=== PATIENT | male | born 1950 | race Caucasian/White ===

== ENCOUNTER → 2018-09-30 | Day surgery (SDC) | payer MEDICARE, OTHER ==
[2018-09-22 15:43] LABS: BASOPHILS % (AUTO) 0.2 % (0-1); EOSINOPHILS # (AUTO) 0.3 X10'3 (0-0.9); EOSINOPHILS % (AUTO) 2.4 % (0-6); LYMPHOCYTES % (AUTO) 27.8 % (21-51); MEAN CORPUSCULAR HEMOGLOBIN 29.6 PG (27.0-31.0); MEAN CORPUSCULAR HGB CONC 33.6 % (33.0-36.5); MEAN PLATELET VOLUME 9.7 FL (7.4-10.4); MONOCYTES # (AUTO) 0.9 X10'3 (0-0.9); MONOCYTES % (AUTO) 7.9 % (2-12); NEUTROPHILS # (AUTO) 6.7 X10'3 (1.8-7.7); NEUTROPHILS % (AUTO) 61.7 % (42-75); PRE OP HEMATOCRIT 46.3 % (42.0-52.0); PRE OP HEMOGLOBIN 15.6 g/dL (14.0-17.9); PRE OP PLATELET COUNT 173 X10'3 (140-440); RED BLOOD COUNT 5.27 X10'6 (4.70-6.10); RED CELL DISTRIBUTION WIDTH 13.9 % (11.5-14.5)
[2018-09-22 15:54] LABS: ALBUMIN 3.8 G/DL (3.4-5.0); ALBUMIN/GLOBULIN RATIO 0.9 (1.1-1.5); ALKALINE PHOSPHATASE 67 IU/L (46-116); BLOOD UREA NITROGEN 21 MG/DL (7-18); BUN/CREATININE RATIO 15.8 (5.4-32.0); CALCIUM 9.2 MG/DL (8.5-10.1); CHLORIDE 105 MMOL/L (99-107); CREATININE 1.33 MG/DL (0.60-1.10); PRE OP ALT 42 U/L (30-65); PRE OP ANION GAP 10 (8-16); PRE OP AST 23 U/L (10-37); PRE OP BILIRUB, TOTAL 0.4 MG/DL (0.0-1.0); PRE OP GLUCOSE 96 MG/DL (70-104); PRE OP SODIUM 144 MMOL/L (135-145); TOTAL CARBON DIOXIDE 29.3 MMOL/L (24-32); TOTAL PROTEIN 7.9 G/DL (6.4-8.2); eGFR 53 ML/MIN
[2018-09-22 15:59] LABS: PRE OP POTASSIUM 3.8 MMOL/L (3.4-5.1)
[2018-09-30] VITALS (16 sets, daily range): BP systolic 134–152; BP diastolic 73–85
[~2018-09-30] VITALS: Ht 177.8 cm; Wt 104.3 kg
[~2018-09-30] MED LIST: ALBU8.5H8 INH; ATOR40TA PO; BUPIVAcaine/PF 2.5mg/ml (0.25%) 10ml vial IJ ONE; BUPIVAcaine/PF 2.5mg/ml (0.25%) 10ml vial ONE; CLOP75TA15 PO; DOCUMENT DATE & TIME OF BETA-BLOCKER PO ONE; ESOM40CA30 PO; EVOL140P; IBUP-1984 PO; LIDOcaine 1% (10mg/ml) 2ml vial ONE; LIDOcaine 2% (20mg/ml) 5ml vial ONE; LISI40TA4 PO; METO25TA6 PO; ROPIVAcaine 0.5% (5mg/ml) 30ml vial ONE; TESTOSTERONE CRM TOP; VANCOMYCIN INJ 1000 MG in NORMAL SALINE 250ml IV.SOLN IV ONE; albuterol 2.5 MG/3 ML nebule NEB ONE; ceFAZolin inj. 2,000 MG in dextrose 5%-water 50ml 50 ML IV ONE; cloNIDine hcl/PF 100mcg/ml inj ONE; dexamethasone sod phosphate 4mg/ml inj. ONE; ePHEDrine 50MG/ML INJ. ONE; famotidine 20mg tablet PO ONE; fentaNYL/PF 50MCG/1 ML 2ML syringe ONE; glycopyrrolate 0.2mg/ml inj ONE; ipratropium/albuterol 3ml nebule NEB ONE; meperidine/PF 25mg/ml syringe IV PRN; methylPREDNISolone sod succ 125mg/2ml vial ONE; midazolam 2 mg/2 ml injection ONE; morphine 4 MG/ML inj SYRINge IV PRN; neostigmine methylsulfate 1 MG/ML 10ml vial ONE; ondansetron/PF 4mg/2ml inj IV PRN; ondansetron/PF 4mg/2ml inj ONE; phenylephrine 10mg/ml inj. ONE; proCHLORperazine 10 MG/2 ml inj IV PRN; propofol inj 20 ML IV ONE; ringers solution, lacted 1,000 ML IV SCH; rocuronium 10mg/ml inj IV ONE; scopolamine 1.5mg patch.TD72 TD ONE; sevoflurane 250ml liquid IH ONE; triamcinolone acetonide 40mg/ml inj ONE
[2018-09-30 07:36] LABS: PARTIAL THROMBOPLASTIN TIME 27 SECONDS (22-32); PROTHROMBIN TIME 10.3 SECONDS (9.0-12.0)
--- NOTE | 2018-09-30 10:23 | NUR ---
Received from OR via [facility] , accompanied by Anesthesiologist NORA and report given by Anesthesiolgist. PATIENT WITH 20G PIV IN LEFT HAND RUNNING LR AT 100. DENIES PAIN UPON ARRIVAL. RIGHT UE IN SLING AND WITH ANTERIOR SHOULDER DRESSING IN PLACE THAT IS CDI. ALSO LEFT WRIST DRESSING IS CDI. + CAP REFILL. NERVE BLOCK IN PLACE SO PATIENT PRESENTS WITH DECREASED SENSATION TO RIGHT UE. VSS. SG PEDROZA APPLIED FOR COMFORT. Addendum: 09/30/18 at 1036 by Lennox Nix RN, RN Amended: Links added.
--- NOTE | 2018-09-30 12:43 | NUR ---
ALL DC CRITERIA HAS BEEN MET. IV TAKEN OUT WITHOUT COMPLICATIONS. ALL INSTRUCTIONS COVERED AND ALL QUESTIONS ANSWERED. OUT VIA WHEELCHAIR TO PERSONAL VEHICLE WHERE THEY WERE SECURED IN AND DRIVEN HOME BY FAMILY. Addendum: 09/30/18 at 1255 by Lennox Nix RN, RN Amended: Links added.
== END | disposition home or self-care (01) ==
LOC: PAS 05:31
PROVIDERS: ATTEND Orthopaedic Surgery
DX: S43.431A Superior glenoid labrum lesion of right shoulder, initial encounter (principal); G56.01 Carpal tunnel syndrome, right upper limb; G56.21 Lesion of ulnar nerve, right upper limb; M19.011 Primary osteoarthritis, right shoulder; M75.41 Impingement syndrome of right shoulder; M25.311 Other instability, right shoulder; M94.211 Chondromalacia, right shoulder; I10 Essential (primary) hypertension; K21.9 Gastro-esophageal reflux disease without esophagitis; E78.5 Hyperlipidemia, unspecified; E66.9 Obesity, unspecified; J45.998 Other asthma; G47.33 Obstructive sleep apnea (adult) (pediatric); I25.2 Old myocardial infarction; Z95.1 Presence of aortocoronary bypass graft; Z95.5 Presence of coronary angioplasty implant and graft; Z87.891 Personal history of nicotine dependence; Z86.73 Personal history of transient ischemic attack (TIA), and cerebral infarction without residual deficits; Z79.891 Long term (current) use of opiate analgesic; Z79.1 Long term (current) use of non-steroidal anti-inflammatories (NSAID); Z88.5 Allergy status to narcotic agent; Z79.01 Long term (current) use of anticoagulants; Z88.3 Allergy status to other anti-infective agents; Z91.041 Radiographic dye allergy status; Z88.6 Allergy status to analgesic agent; Z68.33 Body mass index [BMI] 33.0-33.9, adult; Z86.74 Personal history of sudden cardiac arrest; Z86.79 Personal history of other diseases of the circulatory system; Z72.89 Other problems related to lifestyle; Z88.8 Allergy status to other drugs, medicaments and biological substances; Z79.899 Other long term (current) drug therapy; Z98.890 Other specified postprocedural states; X58.XXXA Exposure to other specified factors, initial encounter; Y93.89 Activity, other specified; Y92.89 Other specified places as the place of occurrence of the external cause; Y99.8 Other external cause status
CPT/HCPCS: 29806; 29807; 29824; 29826; 36415; 64719; 64721; 80053; 85025; 85610; 85730; 94640; A6222; A6449; C1713; J0690; J0735; J1100; J2001; J2250; J2370; J2405; J2704; J2710; J2930; J3010; J3301; J3370; J3490; J7060; J7120; L3650; A6250; A7000; J2795; J7030

== ENCOUNTER 2018-10-24 08:11 | Emergency (ER) | payer MEDICARE, OTHER ==
[~2018-10-24] VITALS: Ht 177.8 cm; Wt 102.2 kg
[~2018-10-24 08:11] MED LIST changes: -BUPIVAcaine/PF 2.5mg/ml (0.25%) 10ml vial IJ ONE; -BUPIVAcaine/PF 2.5mg/ml (0.25%) 10ml vial ONE; -DOCUMENT DATE & TIME OF BETA-BLOCKER PO ONE; -LIDOcaine 1% (10mg/ml) 2ml vial ONE; -LIDOcaine 2% (20mg/ml) 5ml vial ONE; -ROPIVAcaine 0.5% (5mg/ml) 30ml vial ONE; -VANCOMYCIN INJ 1000 MG in NORMAL SALINE 250ml IV.SOLN IV ONE; -albuterol 2.5 MG/3 ML nebule NEB ONE; -ceFAZolin inj. 2,000 MG in dextrose 5%-water 50ml 50 ML IV ONE; -cloNIDine hcl/PF 100mcg/ml inj ONE; -dexamethasone sod phosphate 4mg/ml inj. ONE; -ePHEDrine 50MG/ML INJ. ONE; -famotidine 20mg tablet PO ONE; -fentaNYL/PF 50MCG/1 ML 2ML syringe ONE; -glycopyrrolate 0.2mg/ml inj ONE; -ipratropium/albuterol 3ml nebule NEB ONE; -meperidine/PF 25mg/ml syringe IV PRN; -methylPREDNISolone sod succ 125mg/2ml vial ONE; -midazolam 2 mg/2 ml injection ONE; -morphine 4 MG/ML inj SYRINge IV PRN; -neostigmine methylsulfate 1 MG/ML 10ml vial ONE; -ondansetron/PF 4mg/2ml inj IV PRN; -ondansetron/PF 4mg/2ml inj ONE; -phenylephrine 10mg/ml inj. ONE; -proCHLORperazine 10 MG/2 ml inj IV PRN; -propofol inj 20 ML IV ONE; -ringers solution, lacted 1,000 ML IV SCH; -rocuronium 10mg/ml inj IV ONE; -scopolamine 1.5mg patch.TD72 TD ONE; -sevoflurane 250ml liquid IH ONE; -triamcinolone acetonide 40mg/ml inj ONE
[2018-10-24] MEDS ORDERED: fentaNYL/PF 50MCG/1 ML 2ML syringe IV ONE (08:50)
[2018-10-24 09:15] LABS: BASOPHILS # (AUTO) 0.1 X10'3 (0-0.2); BASOPHILS % (AUTO) 0.4 % (0-1); EOSINOPHILS # (AUTO) 0.3 X10'3 (0-0.9); EOSINOPHILS % (AUTO) 1.7 % (0-6); HEMATOCRIT 48.3 % (42.0-52.0); HEMOGLOBIN 15.9 g/dl (14.0-17.9); LYMPHOCYTES # (AUTO) 2.1 X10'3 (1.1-4.8); MEAN CORPUSCULAR HGB CONC 32.9 % (33.0-36.5); MEAN CORPUSCULAR VOLUME 88.1 FL (78-98); MEAN PLATELET VOLUME 9.5 FL (7.4-10.4); MONOCYTES % (AUTO) 6.6 % (2-12); NEUTROPHILS # (AUTO) 11.6 X10'3 (1.8-7.7); NEUTROPHILS % (AUTO) 77.3 % (42-75); PLATELET COUNT 179 X10'3 (140-440); RED BLOOD COUNT 5.48 X10'6 (4.70-6.10); WHITE BLOOD COUNT 14.9 X10'3 (4.5-11.0)
[2018-10-24 09:28] LABS: PARTIAL THROMBOPLASTIN TIME 28 SECONDS (22-32); PROTHROMBIN TIME 9.8 SECONDS (9.0-12.0)
[2018-10-24 09:31] LABS: ALANINE AMINOTRANSFERASE 37 U/L (12-78); ALBUMIN 3.6 G/DL (3.4-5.0); ALBUMIN/GLOBULIN RATIO 0.8 (1.1-1.5); ALKALINE PHOSPHATASE 74 IU/L (46-116); ANION GAP 12 (8-16); ASPARTATE AMINO TRANSFERASE 20 U/L (10-37); BILIRUBIN,TOTAL 0.5 MG/DL (0.1-1.0); BLOOD UREA NITROGEN 25 MG/DL (7-18); BUN/CREATININE RATIO 18.5 (5.4-32.0); CALCIUM 9.3 MG/DL (8.5-10.1); CHLORIDE 106 MMOL/L (99-107); CREATININE 1.35 MG/DL (0.60-1.10); GLUCOSE 132 MG/DL (70-104); SODIUM 145 MMOL/L (135-145); TOTAL CARBON DIOXIDE 26.6 MMOL/L (24-32); TOTAL PROTEIN 8.3 G/DL (6.4-8.2); eGFR 53 ML/MIN
[2018-10-24] MEDS ORDERED: LEVO750T21 PO (11:06)
[2018-10-24] MEDS ORDERED: CYCL-1 PO (11:06)
[2018-10-24] MEDS ORDERED: levoFLOXACIN 250mg tablet PO ONE (11:10)
[2018-10-24 11:53] VITALS: BP 112/79
== END 2018-10-24 11:54 | disposition home or self-care (01) ==
LOC: ER 08:11
DX: J18.9 Pneumonia, unspecified organism (principal); K42.9 Umbilical hernia without obstruction or gangrene; I25.10 Atherosclerotic heart disease of native coronary artery without angina pectoris; I10 Essential (primary) hypertension; J45.909 Unspecified asthma, uncomplicated; Z98.61 Coronary angioplasty status; Z95.1 Presence of aortocoronary bypass graft; Z88.5 Allergy status to narcotic agent; Z88.6 Allergy status to analgesic agent; Z91.041 Radiographic dye allergy status; Z79.01 Long term (current) use of anticoagulants; Z79.899 Other long term (current) drug therapy
CPT/HCPCS: 36415; 71101; 71250; 74176; 80053; 85025; 85610; 85730; 96374; 99284; J3010

== ENCOUNTER 2019-08-29 13:30 | Emergency (ER) | payer MEDICARE, OTHER ==
[~2019-08-29] VITALS: Ht 177.8 cm; Wt 107.0 kg
[~2019-08-29 13:30] MED LIST changes: +CYCL-1 PO; -ESOM40CA30 PO; +ESOM40CA49 PO
[2019-08-29 13:52] VITALS: BP 179/102
[2019-08-29 14:02] LABS: BASOPHILS # (AUTO) 0.1 X10'3 (0-0.2); BASOPHILS % (AUTO) 0.6 % (0-1); EOSINOPHILS # (AUTO) 0.3 X10'3 (0-0.9); EOSINOPHILS % (AUTO) 2.8 % (0-6); HEMATOCRIT 44.4 % (42.0-52.0); HEMOGLOBIN 15.3 g/dl (14.0-17.9); LYMPHOCYTES # (AUTO) 3.7 X10'3 (1.1-4.8); LYMPHOCYTES % (AUTO) 36.4 % (21-51); MEAN CORPUSCULAR HEMOGLOBIN 30.2 PG (27.0-31.0); MEAN CORPUSCULAR HGB CONC 34.5 g/dL (33.0-36.5); MEAN CORPUSCULAR VOLUME 87.5 FL (78-98); MEAN PLATELET VOLUME 9.3 FL (7.4-10.4); MONOCYTES % (AUTO) 9.9 % (2-12); NEUTROPHILS # (AUTO) 5.1 X10'3 (1.8-7.7); NEUTROPHILS % (AUTO) 50.3 % (42-75); PLATELET COUNT 148 X10'3 (140-440); RED BLOOD COUNT 5.07 X10'6 (4.70-6.10); RED CELL DISTRIBUTION WIDTH 13.6 % (11.5-14.5); WHITE BLOOD COUNT 10.2 X10'3 (4.5-11.0)
[2019-08-29 14:19] LABS: ALANINE AMINOTRANSFERASE 24 U/L (12-78); ALBUMIN 3.9 G/DL (3.4-5.0); ALKALINE PHOSPHATASE 60 IU/L (46-116); ANION GAP 9 (8-16); ASPARTATE AMINO TRANSFERASE 21 U/L (10-37); BILIRUBIN,TOTAL 0.7 MG/DL (0.1-1.0); BLOOD UREA NITROGEN 20 MG/DL (7-18); CALCIUM 9.1 MG/DL (8.5-10.1); CHLORIDE 106 MMOL/L (99-107); GLUCOSE 91 MG/DL (70-104); MAGNESIUM 2.1 MG/DL (1.5-2.4); POTASSIUM 4.1 MMOL/L (3.5-5.1); SODIUM 142 MMOL/L (135-145); TOTAL CARBON DIOXIDE 27.5 MMOL/L (24-32); TOTAL PROTEIN 7.9 G/DL (6.4-8.2); eGFR 74 ML/MIN
[2019-08-29] MEDS ORDERED: MECL-111 PO (14:23)
== END 2019-08-29 15:24 | disposition home or self-care (01) ==
LOC: ER 13:30
DX: R42 Dizziness and giddiness (principal); R11.0 Nausea; I25.10 Atherosclerotic heart disease of native coronary artery without angina pectoris; I10 Essential (primary) hypertension; J45.909 Unspecified asthma, uncomplicated; Z88.8 Allergy status to other drugs, medicaments and biological substances; Z88.6 Allergy status to analgesic agent; Z79.899 Other long term (current) drug therapy; Z86.73 Personal history of transient ischemic attack (TIA), and cerebral infarction without residual deficits; Z95.1 Presence of aortocoronary bypass graft
CPT/HCPCS: 36415; 71045; 80053; 83735; 84484; 85025; 93005; 99284